=== PATIENT | male | born 2000 | race Caucasian/White ===

== ENCOUNTER 2021-04-25 00:12 | Emergency (ER) | payer OTHER ==
[2021-04-25 00:40] VITALS: BP 111/62; PULSE 91; TEMP 97.9; BMI 22.1
[2021-04-25] MEDS ORDERED: ACETAMINOPHEN 500 MG TABLET (FP) PO ONE (02:24)
[2021-04-25] MEDS ORDERED: LIDOCAINE 5% TOPICAL PATCH TP ONE ×2 (04:30→07:50)
[2021-04-25] MEDS ORDERED: LIDOCAINE 5% TOPICAL PATCH ONE ×2 (05:03→07:51)
[2021-04-25] MEDS ORDERED: LIDOCAINE PATCH REMOVAL MC ONE (17:00)
[2021-04-25] MEDS ORDERED: LIDOCAINE PATCH REMOVAL MC SCH (22:00)
== END 2021-04-25 07:53 | disposition home or self-care (01) ==
LOC: JER 00:12
DX: Z04.1 Encounter for examination and observation following transport accident (principal); V89.2XXA Person injured in unspecified motor-vehicle accident, traffic, initial encounter; Y92.9 Unspecified place or not applicable
CPT/HCPCS: 70450-TC; 71260-TC; 72125-TC; 74177-TC; 99285-25

== ENCOUNTER 2022-05-11 18:34 | Emergency (ER) | payer OTHER ==
[2022-05-11 19:11] VITALS: BP 115/72; PULSE 71; RESP 18; TEMP 98.3; BMI 23.7
[2022-05-11 22:28] LABS: SYPHILIS W/ RPR CONF NON-REACTIVE (NONREACTIVE)
[2022-05-11 22:57] LABS: HIV INTERPRETATION NEGATIVE (NEGATIVE)
== END 2022-05-11 23:42 | disposition left against medical advice (07) ==
LOC: JERFT 18:34
DX: Z20.2 Contact with and (suspected) exposure to infections with a predominantly sexual mode of transmission (principal)
CPT/HCPCS: 36415; 86780; 87389; 87491; 87591; 99283-25